=== PATIENT | female | born 1995 | race Caucasian/White ===

== ENCOUNTER 2019-09-07 22:21 | Emergency (ER) | payer BC, OTHER ==
--- NOTE | 2019-09-08 01:35 | ER Document Report ---
ED General - General Chief Complaint: Chest Wall Pain Stated Complaint: CHEST/ABDOMINAL PAIN Time Seen by Provider: 09/08/19 01:35 Primary Care Provider: JACKIE GONSALEZ MD [Primary Care Provider] - Follow up as needed Information source: Patient TRAVEL OUTSIDE OF THE [place] IN LAST 30 DAYS: No - HPI Relieved by: Remaining still - avoiding laying supine Similar symptoms previously: No Notes: 23F presents ambulatory w/ newly wedded , usually healthy w/o PMH, she says since this sharp deep pain brief pangs of pain in right anterior and lateral chest wall just hasn't really gone away still from onset ~a w/a. Does have pain w/ deep inspiration. Gasn't really been working out not regular w card io or strength training. no change in environment/housing. onset has been gradual. feels lying on that side, breathing deeply or say clearnng her throat, or laying on her back makes her notice pain most. no relief w/ siting forward. besides not wanting to feel any pain w/ breathing deep doesn't think she's felt sob or noted dec exercise tolerance or PND or orthopnea. Denies (near) syncope, palpitations. no h/o personal/family h/o VTE or other blood d/o. is on lo- estrogen OCP for years now. not a smoker. no palpitations. denies f/c/s. no cough or URI sx in any recent period. Doesn't remember any inciting traumatic event, new activities or active exertional activities that exacerbate it, difficulty sleeping recently. LMP yesterday. - Related Data Allergies/Adverse Reactions: No Known Allergies Allergy (Unverified 09/07/19 23:40) Home Medications: BCP Past Medical History - Social History Smoking Status: Never Smoker Frequency of alcohol use: Occasional Drug Abuse: None Lives with: Spouse/Significant other Family History: Reviewed & Not Pertinent Patient has suicidal ideation: No Patient has homicidal ideation: No - Past Medical History Cardiac Medical History: Reports: None Denies: Hx DVT, Hx Pulmonary Embolism Pulmonary Medical History: Reports: None Denies: Hx Asthma, Hx COPD, Hx Pneumonia, Hx Intubation Review of Systems - Review of Systems Constitutional: No symptoms reported, See HPI. denies: Chills, Diaphoresis, Fever, Malaise, Weakness, Weight gain, Weight loss, Recent illness EENT: No symptoms reported Cardiovascular: No symptoms reported, See HPI Respiratory: No symptoms reported, See HPI, Hurts to breathe. denies: Cough, Sputum, Wheezing Gastrointestinal: No symptoms reported Genitourinary: No symptoms reported Female Genitourinary: No symptoms reported Musculoskeletal: No symptoms reported Skin: No symptoms reported Hematologic/Lymphatic: denies: Easy bleeding, Easy bruising Neurological/Psychological: No symptoms reported Physical Exam - Vital signs Vitals: Temp Pulse Resp BP Pulse Ox 98.1 F 86 16 120/62 100 09/07/19 22:36 09/07/19 22:36 09/07/19 22:36 09/07/19 22:36 09/07/19 22:36 - Notes Notes: i cannot reproduce chest pain but she is able to locate to left parasternal region of pectoralis and left intercostal/lat dorsi on right as site of pain w/ breathing. lung sounds full clear non focal. no point rib deformities or ttp. - General General appearance: Appears well In distress: None - HEENT Head: Normocephalic, Atraumatic Eyes: Normal. No: Pale conjunctiva, Scleral icterus Conjunctiva: No: Injected Extraocular movements intact: Yes Pupils: PERRL Tympanic membrane: Normal Sinus: Normal Nasal: Normal Mouth/Lips: Normal Mucous membranes: Moist Pharynx: Normal. No: Erythema, Exudate, Tonsillar hypertrophy, Uvular edema Neck: Normal - Respiratory Respiratory status: No: Respiratory distress, Depressed respirations, Pursed lip breathing, Retractions, Tachypnea Chest status: Nontender, Pain on movement, Pain with deep breathing. No: Ecchymosis, Wounds, Accessory muscle use, Prolonged expirations, Splinting Breath sounds: Normal. No: Decreased air movement, Nonproductive cough, Productive cough, Rales, Rhonchi, Stridor, Wheezing Chest palpation: Normal. No: Subcutaneous emphysema, Tender, Ecchymosis, Wounds - Cardiovascular Heart sounds: Normal auscultation Murmur: No Friction rub: No Gallop: None auscultated Pulses: Normal: Radial, Popliteal, Posterior tibial, Dorsalis pedis Normal capillary refill: Yes - Abdominal Inspection: Normal Distension: No distension Bowel sounds: Normal Tenderness: Nontender Organomegaly: No organomegaly - Back Back: Nontender. No: Deformity/step-off, CVA tenderness, Vertebra tenderness, Scars, Scoliosis, Wounds - Extremities General upper extremity: Normal inspection General lower extremity: Normal inspection Shoulder: Normal Arm: Normal Elbow: Normal Forearm: Normal Wrist: Normal Hand: Normal Hip: Normal Thigh: Normal Knee: Normal Calf: Normal Ankle: Normal Foot: Normal - Neurological Neuro grossly intact: Yes Cognition: Normal Orientation: AAOx4 [place] Coma Scale Eye Opening: Spontaneous [place] Coma Scale Verbal: Oriented [place] Coma Scale Motor: Obeys Commands [place] Coma Scale Total: 15 Speech: Normal Cranial nerves: Normal Cerebellar coordination: Normal Motor strength normal: LUE, RUE, LLE, RLE - Psychological Associated symptoms: Normal affect, Normal mood. No: Agitated, Angry, Anxious, Combative, Confused, Depressed, Flat affect, Flight of ideas, Paranoid, Psychomotor agitation, Psychomotor depression, Tearful, Visual hallucinations - Skin Skin Moisture: Dry Skin Color: Normal Course - Re-evaluation Re-evalutation: 09/11/19 11:02 cont to appear well. she and i together came to shared decision making to go ahead w/ CXR today since even tho does expose her to some ionizing radiation, i think it might show if there was focal lung space irregularity to explain her sx. i also explained i am reassured by her history and exam this isnt' PE...does take OCPs which is only singular ind RF, but no other risk factors and absolutely no tachypnea/tachycardia/hypoxia at all and history also more c/w i told her i can't be 100% but i think msk chest wall pain since is in that anatomic functional distribution though not reproducibly ttp. gave warning signs to pam for (near) syncope, exertional sx, palpitations, worsening w f/c/s, n/v. she and understand agree try ibu in next few days as i prescibed, f/u for reg maintenance care w/ pcp or return if needed otherwise. 09/11/19 12:21 today 09/11/19 when completing this note did attempt to call home phone # listed in demographics, just to check how she's doing and to ensure sx have resolved or almost nearly resolved... reached voicemail though. - Vital Signs Vital signs: Temp Pulse Resp BP Pulse Ox 97.9 F 73 16 112/71 99 09/08/19 04:21 11/28/19 04:21 09/08/19 04:21 09/08/19 04:21 09/08/19 04:21 - Laboratory Laboratory results interpreted by me: not preg ua ok. deferred other lab w/u since she was so healthy appearing, she and were dressed up casual she had makeup and hair done. also didn't perform ECG, given pain sharp seconds in duration. in retrospect completing charting i would have obtained ECG to ascertain no hypertrophy, arrythmia, or any evidence of pericarditis. But, still i think this would have been reaching for anything else b/c hx did not suggest pericarditis either (ie no fever, dec in exer tolerance. was positional but more when laying dependently on lateral throacic area of pains. Nor did her presentation suggest any arrhythmia -- again no (near) syncope palpitatiohns or cardiac sx, and same w/ searching for hypertrophy or ECG features which should be screebed for in setting of true (near) syncopoe eg WPW or long QT etc. still i think as relatively practicing er doc would obtain to support my assessments since not much downside to performing this test to resources or to pt. Discharge - Discharge Clinical Impression: Chest wall pain, Pleuritic chest pain Condition: Good Disposition: HOME, SELF-CARE Additional Instructions: Today we obtained a chest x-ray and this was reassuring evidencing signs of pneumonia or or issues with your ribs and it was a normal chest x-ray. I would suggest taking an anti-inflammatory dose of ibuprofen which is at least 600 every 6 hours and continue to eat and drink well. Otherwise he can alternate with 650 acetaminophen every 6 hours. She is watch for any signs of passing out near passing out or chest pain that severe and persistent on exertion but otherwise I think this is just some chest wall inflammation that we will that should start to improve over a few days. Watch for any fever chills sweats and otherwise stay hydrated and rested. Referrals: JACKIE GONSALEZ MD [Primary Care Provider] - Follow up as needed
[2019-09-08] MEDS ORDERED: IBUPROFEN 800 MG TABLET PO ONE (02:08)
[2019-09-08 02:33] LABS: AMORPHOUS SEDIMENT,URINE TRACE /HPF; APPEARANCE,URINE CLOUDY; BILIRUBIN,URINE NEGATIVE (NEGATIVE); COLOR,URINE YELLOW; GLUCOSE, URINE NEGATIVE (NEGATIVE); KETONES,URINE NEGATIVE (NEGATIVE); LEUKOCYTE ESTERASE,URINE NEGATIVE (NEGATIVE); NITRITE,URINE NEGATIVE (NEGATIVE); PROTEIN,URINE NEGATIVE (NEGATIVE); URINE SPECIFIC GRAVITY 1.019; UROBILINOGEN,URINE NEGATIVE mg/dL (<2.0)
--- NOTE | 2019-09-08 03:34 | RADIOLOGY REPORT (SQ) ---
CLINICAL HISTORY: pain on inspiration Right/lateral costal pain COMPARISON: None. TECHNIQUE: XR CHEST 2 VIEWS 09/08/2019 2:06 AM [employer]PLIC[employer]KER FINDINGS: Cardiac silhouette is normal in size. Lungs are clear without consolidation, atelectasis, mass or edema. There is no pleural effusion. There is no pneumothorax. There are no acute osseous findings. IMPRESSION: Clear lungs.
[2019-09-08 04:21] VITALS: BP 112/71
== END 2019-09-08 04:33 | disposition home or self-care (01) ==
LOC: ER 22:21
DX: R07.89 Other chest pain (principal); R07.81 Pleurodynia; R07.1 Chest pain on breathing; Z79.3 Long term (current) use of hormonal contraceptives
CPT/HCPCS: 71046; 81001; 81025; 99284